=== PATIENT | male | born 1995 | race American Indian/Alaskan Native ===

== ENCOUNTER 2016-08-07 17:48 | Emergency (ER) | payer BC ==
[2016-08-07 18:05] VITALS: BMI 28.3
[2016-08-07 18:09] VITALS: RESP 16; TEMP 98.7
[2016-08-07] MEDS ORDERED: TDAP Vaccine 0.5 mL Syr IM ONE (18:20)
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
[2016-08-07 19:34] VITALS: BP 115/69; PULSE 76; O2SAT 98
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
--- NOTE | 2016-08-08 15:01 | CARD ---
APPROVED REPORT EKG Measurement Heart [id number] <Conclusion> Normal sinus rhythm Possible Left atrial enlargement Incomplete right bundle branch block Borderline ECG
== END 2016-08-07 19:35 | disposition home or self-care (01) ==
LOC: ED 17:48
DX: S20.219A Contusion of unspecified front wall of thorax, initial encounter (principal); S50.01XA Contusion of right elbow, initial encounter; S90.811A Abrasion, right foot, initial encounter; Y04.0XXA Assault by unarmed brawl or fight, initial encounter; Y92.9 Unspecified place or not applicable; Z23 Encounter for immunization
CPT/HCPCS: 71020; 73080; 73630; 90471; 90715; 93005; 96372; 99283; J1885